=== PATIENT | male | born 1960 | race Caucasian/White ===

== ENCOUNTER 2020-11-19 17:35 | Emergency (ER) | payer MEDICARE, MEDICAID ==
[~2020-11-19] VITALS: Ht 177.8 cm; Wt 77.2 kg
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
--- NOTE | 2020-11-19 17:44 | NUR ---
THE PATIENT ALSO HAS MULTIPLE SPOTS ON HIS SKIN WHICH HE APPLIED NUSKIN TO CLEAR UP HIS ABSCESSES.
--- NOTE | 2020-11-19 18:09 | NUR ---
PT ADMITS TO HEROIN USE, PT SKIN POPS AND HAS MULTIBLE AREAS ON CHEST AND ARMS COVERED WITH "NUSKIN"
--- NOTE | 2020-11-19 18:47 | NUR ---
SPOKE WITH DR. MAYERS REGARDING POOR IV ACCESS DUE TO IV DRUG USE, PER MD, PUSH FLUIDS, NO IV AT THIS TIME
[2020-11-19 18:53] LABS: BASOPHILS % (AUTO) 1 % (0-1); EOSINOPHILS % (AUTO) 2 % (1-7); LYMPHOCYTES % (AUTO) 11 % (22-44); MEAN CORPUSCULAR HGB CONC 33.3 g/dL (33.2-36.2); MEAN PLATELET VOLUME 7.4 fL (7.4-10.4); MONOCYTES % (AUTO) 7 % (2-9); NEUTROPHILS % (AUTO) 80 % (42-75); PLATELET COUNT 483 x10^3/uL (130-400); RED BLOOD COUNT 4.29 x10^6/uL (4.38-5.82)
[2020-11-19 18:55] LABS: MD NO
[2020-11-19] MEDS ORDERED: SODIUM CHLORIDE 0.9% 1,000ML IVBOLUS ONE (19:00)
[2020-11-19 19:01] LABS: ALBUMIN 3.2 g/dL (3.4-5.0); CALCIUM 8.5 mg/dL (8.5-10.1)
[2020-11-19 19:04] LABS: ALANINE AMINOTRANSFERASE 13 U/L (12-78); ALKALINE PHOSPHATASE 92 U/L (45-117); BILIRUBIN,TOTAL 0.3 mg/dL (0.2-1.0); CREATININE 0.76 mg/dL (0.7-1.3); TOTAL PROTEIN 7.4 g/dL (6.4-8.2)
[2020-11-19 19:14] LABS: ANION GAP 9 mmol/L (5-15); CHLORIDE 109 mmol/L (98-107)
[2020-11-19 19:16] LABS: SALICYLATE LEVEL < 1.7 mg/dL (2.8-20.0)
--- NOTE | 2020-11-19 19:18 | NUR ---
ASSUMED CARE FROM YASMIN HUMMEL. PT RESTING IN [facility] AT THIS TIME, DANIELLE.
[2020-11-19 20:28] VITALS: BP 120/88
--- NOTE | 2020-11-19 20:29 | NUR ---
TASK RN: PT RESTING ON GURNEY. NADN. GONZALEZ.
== END 2020-11-19 21:19 | disposition home or self-care (01) ==
LOC: ED 21:13
DX: T40.1X1A Poisoning by heroin, accidental (unintentional), initial encounter (principal); L02.211 Cutaneous abscess of abdominal wall; R10.9 Unspecified abdominal pain; I10 Essential (primary) hypertension; G89.29 Other chronic pain; Y92.89 Other specified places as the place of occurrence of the external cause
CPT/HCPCS: 36415; 71045; 80053; 80299; 80320; 80329; 85025; 93005; 99285; G0480